=== PATIENT | female | born 1975 | race Hispanic/Latino ===

== ENCOUNTER 2016-08-13 23:48 | Emergency (ER) | payer OTHER ==
[~2016-08-13] VITALS: Ht 162.6 cm; Wt 72.6 kg
[~2016-08-13 23:48] MED LIST: ALBUTEROL2.5 MG/3 M INH/SOL; CIPRO 250MG250 MG PO; CIPRO 500MG TA500 MG PO; FLEXERIL10 MG PO; HYDROCODONE/ACE1 TA1 PO; HYDROXYZINE HCL50 M1 PO; LABETALOL HCL100 M1 PO; MASON NATURAL325 MG PO; MEDROL DOSEPAK1 PAC PO; MEDROL4 MG PO; NORCO 325 MG-51 TAB PO; PANTOPRAZOLE SO20 M1 PO; PROAIR HFA8.5 GM INH; PROTONIX20 M1 PO; VITAFOL-ONE CA1 EACH PO
--- NOTE | 2016-08-14 00:07 | ED CARDIAC/CP/PALPITATIONS ---
History of Present Illness General Chief Complaint: Chest Pain Stated Complaint: CHEST PAIN Source: patient, old records Exam Limitations: no limitations Vital Signs & Intake/Output Vital Signs & Intake/Output Vital Signs Date Time Temp Pulse Resp B/P Pulse O2 O2 Flow FiO2 Ox Delivery Rate 08/14 0118 96.8 100 18 164/88 97 Room Air 08/14 0012 157/91 08/13 2358 98.1 118 20 98 Room Air ED Intake and Output 08/14 0000 08/13 1200 Intake Total Output Total Balance Patient 160 lb Weight Allergies Coded Allergies: NO KNOWN ALLERGIES (03/25/16) Reconcile Medications Albuterol Sulfate (Proair Hfa) 90 MCG HFA.AER.AD 2 PUF INH PRN ASTHMA ( Reported) Albuterol Sulfate 2.5 MG/3 ML (0.083 %) VIAL.NEB 1 Vial INH/ZAHRA PRN ASTHMA ( Reported) Diclofenac Potassium 50 MG TABLET 1 TAB PO BID PRN PAIN Hydroxyzine HCl 50 MG TABLET 1 TAB PO Q6PRN PRN anxiety Labetalol HCl 100 MG TABLET 1 TAB PO BID PIH Pantoprazole Sodium 20 MG TABLET.DR 1 TAB PO DAILY GI (Reported) Pnv#26/Iron Poly/FA/Dha (Vitafol-One Capsule) 1 EACH CAPSULE 1 CAP PO DAILY SUPPLEMENT (Reported) Triage Note: TRIAGE: PATIENT TO ER FROM HOME REPORTING CP X 2 HOURS, TOOK MOTRIN W/O RELIEF. PAIN INCREASED W/ PALPATION TO L CHEST AND INCREASED W/ DEEP BREATHING. REPORTS PAIN STABBING 10/10. DENIES SOB/ N/V/D. Triage Nurses Notes Reviewed? yes : No Patient currently breastfeeds: No HPI: Patient was sitting watching TV at approximately 10 PM when she had gradual onset of heaviness and pressure in the area of her left breast. The pain continued to escalate to its current pain of 10 out of 10. There is no radiation. Patient took Motrin without relief. Pain increases with inspiration and movement. Patient denies shortness of breath. There is no known trauma. Patient took a hot shower but that did not help the pain. Patient denies any coughing. There is no orthopnea. Past History Travel History Traveled to [place] past 21 day No Medical History Any Pertinent Medical History? 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 No Review of Systems Review of Systems Constitutional: Reports: no symptoms. EENTM: Reports: no symptoms. Respiratory: Reports: no symptoms. Cardiovascular: Reports: see HPI, chest pain. GI: Reports: no symptoms. Genitourinary: Reports: no symptoms. Musculoskeletal: Reports: no symptoms. Skin: Reports: no symptoms. Neurological/Psychological: Reports: no symptoms. Hematologic/Endocrine: Reports: no symptoms. Immunologic/Allergic: Reports: no symptoms. All Other Systems: Reviewed and Negative Physical Exam Physical Exam General Appearance: well developed/nourished, alert, awake, anxious, moderate distress Head: atraumatic, normal appearance Eyes: Bilateral: PERRL, EOMI. Ears, Nose, Throat: normal pharynx, normal ENT inspection, hearing grossly normal Neck: normal inspection, supple, full range of motion, JVD Respiratory: normal breath sounds, no respiratory distress, lungs clear, TENDER TO PALP Cardiovascular: regular rate/rhythm, normal peripheral pulses Gastrointestinal: normal bowel sounds, soft, non-tender, no organomegaly Back: normal inspection, normal range of motion Extremities: normal inspection, normal capillary refill, normal range of motion, no edema Neurologic/Psych: no motor/sensory deficits, awake, alert, oriented x 3, normal gait, normal mood/affect Skin: intact, normal color, warm/dry Core Measures ACS in differential dx? No Severe Sepsis Present: No Septic Shock Present: No Progress Differential Diagnosis: AMI, aortic dissection, costochondritis, musculoskeletal pain, myocarditis, pericarditis, pulmonary embolism Plan of Care: Orders Procedure Date/time Status HUMAN BETA HCG SCREEN 08/14 0010 Complete D-DIMER 08/14 0006 Complete TROPONIN LEVEL 08/14 1 Complete COMPREHENSIVE METABOLIC PANEL 08/14 1 Complete CBC WITHOUT DIFFERENTIAL 08/14 1 Complete EKG 08/13 2350 Active Current Medications Sig/Gilbert Start time Last Medication Dose Stop Time Status Admin Ketorolac 60 MG ONCE ONE 08/14 114 UNVr Tromethamine 08/15 115 (Toradol) Laboratory Tests 08/14/16 0010: Total Beta HCG Cancelled 08/14/16 001: Anion Gap 8, Estimated GFR > 60, BUN/Creatinine Ratio 22.5, Glucose 100 H, Calcium 9.1, Total Bilirubin 0.5, AST 35, ALT 47, Alkaline Phosphatase 92, Troponin I < 0.01, Total Protein 7.4, Albumin 3.9, Globulin 3.5, Albumin/ Globulin Ratio 1.1, Total Beta HCG NEGATIVE, D-Dimer 201, CBC w Diff NO MAN DIFF REQ, RBC 4.25, MCV 73.8 L, MCH 24.5 L, RDW 17.0 H, MPV 9.7, Gran % 65.3, Lymphocytes % 22.8, Monocytes % 7.2, Eosinophils % 4.1, Basophils % 0.6, Absolute Granulocytes 6.6 H, Absolute Lymphocytes 2.3, Absolute Monocytes 0.7 H, Absolute Eosinophils 0.4, Absolute Basophils 0.1, PUBS MCHC 33.2 Initial ED EKG: NSR, no ST T wave changes Prior EKG: unchanged Comments: Pain is decreased after the Flexeril. Patient states that now she only has pain with deep inspiration. There is still mild shortness of breath. Departure Departure Disposition: HOME OR SELF CARE Condition: Stable Clinical Impression Primary Impression: Chest pain, unspecified Referrals: DULCE GILLETTE,ADAMARIS Kaur (PCP/Family) Additional Instructions: RETURN IF SYMPTOMS WORSEN OR FOR ANY CONCERNS Departure Forms: Customer Survey General Discharge Information Prescriptions: Current Visit Scripts Diclofenac Potassium 1 TAB PO BID PRN PAIN #20 TAB Critical Care Note Critical Care Note Critical Care Time: non-applicable
[2016-08-14 00:25] LABS: ABSOLUTE BASOPHIL COUNT 0.1 /CUMM (0.0-0.2); ABSOLUTE EOSINOPHIL COUNT 0.4 /CUMM (0.0-0.7); ABSOLUTE MONOCYTE COUNT 0.7 /CUMM (0.10-0.60); MEAN CORPUSCULAR HGB 24.5 PG (27.0-31.0)
[2016-08-14 00:28] LABS: ABSOLUTE GRANULOCYTE CT 6.6 /CUMM (1.4-6.5); ABSOLUTE LYMPH COUNT 2.3 /CUMM (1.2-3.4); BASOPHIL % 0.6 % (0.0-2.0); EOSINOPHIL % 4.1 % (0-5); GRANULOCYTE % 65.3 % (42.2-75.2); HEMATOCRIT 31.3 % (37-47); MEAN CORPUSCULAR HGB CONC 33.2 G/DL (33.0-37.0); MEAN CORPUSCULAR VOLUME 73.8 FL (81.0-99.0); MEAN PLATELET VOLUME 9.7 FL (7.4-10.4); PLATELET COUNT 215 /CUMM (130-400); RED BLOOD CELL CT 4.25 /CUMM (4.20-5.40); WHITE BLOOD CELL COUNT 10.2 /CUMM (4.8-10.8)
[2016-08-14] MEDS ORDERED: DICLOFENAC POTA50 M1 PO (01:17)
[2016-08-14 05:58] VITALS: BP 166/89
== END 2016-08-14 06:39 ==
LOC: ERH 23:48
PROVIDERS: Emergency Medicine
DX: R07.89 Other chest pain (principal)
CPT/HCPCS: 93005; 93010; 96372; J1885

== ENCOUNTER 2017-06-24 18:38 | Emergency (ER) | payer OTHER ==
[~2017-06-24] VITALS: Ht 162.6 cm; Wt 74.8 kg
[~2017-06-24 18:38] MED LIST changes: +DICLOFENAC POTA50 M1 PO
[2017-06-24 19:08] VITALS: BP 132/88
--- NOTE | 2017-06-24 22:29 | RADIOLOGY REPORT ---
EXAMINATION: XR CERVICAL SPINE CLINICAL INFORMATION: Neck pain. Rule out cervical spine injury, malalignment COMPARISON: Cervical spine MRI 04/30/2011. Cervical spine CT 04/07/2011. TECHNIQUE: AP, lateral, odontoid, and bilateral oblique views of the cervical spine. FINDINGS: The dens is intact. The lateral masses are normally positioned. There is reversal of the normal cervical lordosis. There was straightening of the normal cervical lordosis on the prior CT and MRI exams but the degree of reversal appears worsened/increased. 3 mm anterolisthesis of C3 on C4, new. Normal prevertebral soft tissues. Normal alignment at the cervicothoracic junction. Lung apices clear. No fracture seen. There is multilevel left-sided osseous neuroforaminal narrowing on the oblique views, possibly for technical reasons. There is mild right osseous neuroforaminal narrowing at C4-5. There was no osseous neuroforaminal narrowing on the prior cervical spine MRI 04/30/2011. IMPRESSION: There is reversal of the normal cervical lordosis, which can be seen in the setting of muscle spasm. There is 3 mm anterolisthesis of C3 on C4. If there is clinical concern for ligamentous injury, a cervical spine MRI could be obtained. Multilevel left-sided osseous neuroforaminal narrowing is seen on the oblique view, possibly for technical reasons. Mild right C4-5 osseous neuroforaminal narrowing. This could also be assessed by cervical spine MRI. No fracture seen.
== END 2017-06-24 22:03 | disposition admitted as inpatient to this hospital (09) ==
LOC: ERH 18:38
DX: M54.2 Cervicalgia (principal); R51 Headache
CPT/HCPCS: 72050; 99281

== ENCOUNTER 2017-08-19 10:00 | Emergency (ER) | payer OTHER ==
[~2017-08-19] VITALS: Ht 162.6 cm; Wt 74.8 kg
--- NOTE | 2017-08-19 10:22 | ED GI/GU/ABDOMINAL COMPLAINT ---
See Addendum History of Present Illness General Chief Complaint: General Adult Stated Complaint: N/V,FREEMAN/NECK PAIN,BACK PAIN Source: patient Exam Limitations: no limitations Vital Signs & Intake/Output Vital Signs & Intake/Output Vital Signs Date Time Temp Pulse Resp B/P B/P Pulse O2 O2 Flow FiO2 Mean Ox Delivery Rate 08/19 1413 98.1 84 18 168/88 100 Room Air 08/19 1256 97.9 87 18 162/88 98 Room Air 08/19 1212 Room Air 08/19 1010 98.1 88 18 146/92 98 Room Air Allergies Coded Allergies: NO KNOWN ALLERGIES (03/25/16) Reconcile Medications Albuterol Sulfate (Proair Hfa) 90 MCG HFA.AER.AD 2 PUF INH PRN ASTHMA ( Reported) Albuterol Sulfate 2.5 MG/3 ML (0.083 %) VIAL.NEB 1 Vial INH/ZAHRA PRN ASTHMA ( Reported) Diclofenac Potassium 50 MG TABLET 1 TAB PO BID PRN PAIN Dicyclomine HCl 10 MG CAPSULE 1 CAP PO TID ABDOMINAL PAIN Hydroxyzine Hydrochloride (Atarax) 50 MG TABLET 1 TAB PO Q6PRN PRN anxiety Ketorolac Tromethamine 10 MG TABLET 1 TAB PO TID PRN HEADACHE Labetalol HCl 100 MG TABLET 1 TAB PO BID PIH Ondansetron HCl (Zofran) 4 MG TABLET 1 TAB PO Q6-8P PRN NAUSEA Pantoprazole Sodium 20 MG TABLET.DR 1 TAB PO DAILY GI (Reported) Pnv#26/Iron Poly/FA/Dha (Vitafol-One Capsule) 1 EACH CAPSULE 1 CAP PO DAILY SUPPLEMENT (Reported) Triage Note: 41 YO FEMALE TO TRIAGE C/O 4 DAYS OF LOWER ABD PAIN. STATES TODAY SHE STARTED WITH DIZZINESS AND FELT LIKE "MY L EAR WAS GOING TO POP" DENIES DAIRRHEA. DENIES URIANRY S/S. STATES SHE IS UNABLE TO EAT OR DRINK. Triage Nurses Notes Reviewed? yes ? N Is pt currently ? No Onset: Gradual Duration: constant Timing: recent history Severity Numbers: 10 Location: generalized abdomen Radiation: no radiation HPI: Patient is a 41-year-old female with past medical history of viral meningitis, asthma chronic back pain who presents emergency room stating that approximately 4 days ago patient actually struck her left side of her head to a wall or since patient has been complaining of left-sided headaches and neck pain patient also has developed a four-day history of generalized abdominal pain with multiple episodes of nausea and vomiting. Patient has remote history of tubal ligation Patient cannot tolerating by mouth for the past 3 days Denies any fever chills blurred vision cough chest pain dysuria hematuria vaginal bleeding or discharge. (Derek Uribe) Past History Travel History Traveled to [place] past 21 day No Medical History Any Pertinent Medical History? 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 No (Derek Uribe) Review of Systems Review of Systems Constitutional: Reports: see HPI. Denies: chills, fever. EENTM: Reports: ear pain. Respiratory: Reports: no symptoms. Cardiovascular: Reports: no symptoms. GI: Reports: see HPI, abdominal pain. Genitourinary: Reports: no symptoms. Musculoskeletal: Reports: no symptoms, neck pain. Skin: Reports: no symptoms. Neurological/Psychological: Reports: see HPI, headache. Hematologic/Endocrine: Reports: no symptoms. Immunologic/Allergic: Reports: no symptoms. All Other Systems: Reviewed and Negative (Derek Uribe) Physical Exam Physical Exam General Appearance: anxious, moderate distress Head: atraumatic Eyes: Bilateral: normal appearance, PERRL, EOMI. 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 No Sepsis Present: No Sepsis Focused Exam Completed? No (Nancy PEDERSEN,Derek) Progress Differential Diagnosis: AAA, AMI, appendicitis, biliary colic, bowel obstruction , colon cancer, cholecystitis, diverticulitis, ectopic , endometritis, esophageal varices, gastritis, hepatitis, hernia, hemorrhoids, ischemic bowel, inflamm bowel dis, intrauterine , kidney stone, Denae-Radha tear, ovarian cyst, ovarian torsion, pancreatitis, PID/cervicitis, peptic ulcer, PUD/ GERD, perforated viscous, SBO, threatened AB, UTI/pyelo Plan of Care: Orders Procedure Date/time Status LACTIC ACID 08/19 1356 Active URINALYSIS 08/19 1056 Active LIPASE 08/19 1056 Complete LACTIC ACID 08/19 1056 Complete HUMAN BETA HCG SCREEN 08/19 1056 Complete COMPREHENSIVE METABOLIC PANEL 08/19 1056 Complete CBC WITHOUT DIFFERENTIAL 08/19 1056 Complete AMYLASE 08/19 1056 Complete Laboratory Tests 08/19/17 1117: Anion Gap 13, Estimated GFR > 60, BUN/Creatinine Ratio 18.3, Glucose 94, Lactic Acid 0.9, Calcium 9.5, Total Bilirubin 0.8, AST 27, ALT 36, Alkaline Phosphatase 77, Total Protein 7.9, Albumin 4.4, Globulin 3.5, Albumin/Globulin Ratio 1.3, Amylase 62, Lipase 66, Total Beta HCG NEGATIVE, CBC w Diff NO MAN DIFF REQ, RBC 5.04, MCV 77.6 L, MCH 26.1 L, MCHC 33.6, RDW 14.8 H, MPV 9.9, Gran % 80.1 H, Lymphocytes % 11.8 L, Monocytes % 6.0, Eosinophils % 1.7, Basophils % 0.4, Absolute Granulocytes 6.5, Absolute Lymphocytes 1.0 L, Absolute Monocytes 0.5, Absolute Eosinophils 0.1, Absolute Basophils 0 Patient on initial presentation was in moderate distress cranial nerves were essentially intact for concerns of head trauma CT scan of head and neck will be ordered along with CT of abdomen due to severe abdominal pain on arrival. BLOOD WORK currently pending. Blood work CT scan was all unremarkable showing no acute process patient initially received morphine and Toradol was administered discussed results with patient gave copies of images to patient no fractures noted no ICH noted patient will be by mouth challenged. Patient was able tolerate by mouth patient also had significant improvement of headaches and neck pain. No concern of meningitis at this time negative Brudzinski negative Kernig's no meningeal signs Discussed all results with patient patient was given CT scan copies for follow- up Diagnostic Imaging: Viewed by Me: CT Scan. Radiology Impression: no acute abnormality, no fracture Initial ED EKG: none Comments: PATIENT: EM PALACIOS PRESENT AGE: 41 PATIENT ACCOUNT NO: [id number] : 74 LOCATION: [facility] ORDERING PHYSICIAN: Derek PEDERSEN SERVICE DATE: 08/19/17 EXAM TYPE: CAT - CT ABD & PELVIS W IV CONTRAST EXAMINATION: CT ABDOMEN AND PELVIS WITH CONTRAST CLINICAL INFORMATION: Abdominal pain COMPARISON: 08/02/2015 TECHNIQUE: Multidetector volumetric imaging was performed of the abdomen and pelvis following IV administration of 95 mL of Optiray 320 intravenous contrast. Sagittal and coronal reformatted images were obtained on the technologist's workstation. DLP: 565.83 mGy-cm FINDINGS: LUNG BASES: The visualized lung bases are unremarkable. LIVER, GALLBLADDER, AND BILIARY TREE: The liver is normal in size, shape, and attenuation. No focal hepatic lesion or biliary ductal dilatation is present. The gallbladder is unremarkable with no evidence of radiopaque gallstones, gallbladder wall thickening, or obvious pericholecystic inflammatory changes. PANCREAS: Unremarkable. SPLEEN: Unremarkable. ADRENAL GLANDS: Unremarkable. KIDNEYS AND URETERS: The kidneys are normal in size, shape, and attenuation. No hydronephrosis, hydroureter, or calculi seen. No perinephric stranding. Stable 1.6 cm right renal cyst. Tiny cortical hypodensity on the left is too small to characterize but statistically most likely represents the same. BLADDER: Unremarkable. GASTROINTESTINAL TRACT: The small and large bowel are unremarkable. The appendix is unremarkable. ABDOMINAL WALL: No significant hernia is appreciated. LYMPH NODES: Normal. VASCULAR: Unremarkable. PELVIC VISCERA: Unremarkable. OSSEOUS STRUCTURES: Unremarkable. IMPRESSION: No evidence of acute abdominal or pelvic abnormality. DICTATED BY: Domonique Geronimo MD DATE/TIME DICTATED:08/19/171228 ICE SKATER:DEREK DATE/TIME TRANSCRIBED:08/19/171228 PATIENT: EM PALACIOS PRESENT AGE: 41 PATIENT ACCOUNT NO: [id number] : 74 LOCATION: [facility] ORDERING PHYSICIAN: Derek PEDERSEN SERVICE DATE: 08/19/17 EXAM TYPE: CAT - CT CERV SPINE WO IV CONTRAST; CT HEAD WO IV CONTRAST EXAMINATION: NONCONTRAST HEAD CT NONCONTRAST CERVICAL SPINE CT INDICATION INFORMATION: Head and neck trauma COMPARISON: 08/02/2015 TECHNIQUE: Separate noncontrast CT examinations of the head and cervical spine were performed. Coronal and sagittal images were created for each examination at the technologist workstation. DLP: 909 mGy-cm FINDINGS: Head: There is no evidence of acute intracranial hemorrhage or territorial infarction. No abnormal mass effect or midline shift is seen. Cobos to white matter differentiation is well preserved. No extra-axial fluid collections are identified. No hydrocephalus. No significant volume loss. There is no abnormal attenuation within the brain parenchyma. The osseous structures and soft tissues are normal. Mild opacification of the ethmoid air cells. The mastoid air cells and visualized portions of the paranasal sinuses are otherwise well aerated. Cervical spine: Reversal of the normal cervical lordosis. There is otherwise anatomic alignment of the vertebral bodies and posterior elements. The atlantoaxial and atlantooccipital articulations are intact. Vertebral body heights are maintained. There is mild multilevel intervertebral disc space narrowing with endplate osteophyte formation and facet arthropathy. No evidence of acute fracture. No prevertebral soft tissue swelling. Visualized portions of the lung apices are unremarkable. The thyroid gland is unremarkable. IMPRESSION: 1. No acute intracranial findings. 2. No acute fracture or malalignment of the cervical spine. Mild degenerative changes. DICTATED BY: Robby Remy MD DATE/TIME DICTATED:08/19/171238 ICE SKATER:DEREK DATE/TIME TRANSCRIBED:08/19/171238 CONFIDENTIAL, DO NOT COPY WITHOUT APPROPRIATE AUTHORIZATION. (Nancy PEDERSEN,Derek) Departure Departure Disposition: HOME OR SELF CARE Condition: Stable Clinical Impression Primary Impression: Concussion Secondary Impressions: Abdominal pain, Neck strain Referrals: Carla GILLETTE,Evelyne Kaur (PCP/Family) Ab Caldera MD Additional Instructions: As discussed begin a 24-hour clear liquid and bland diet to rest her bowels. 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 Caldera for further evaluation treatment of your abdominal pain. If symptoms worsen return to emergency room Departure Forms: Customer Survey General Discharge Information Prescriptions: Current Visit Scripts Ketorolac Tromethamine 1 TAB PO TID PRN HEADACHE #15 TAB Ondansetron HCl (Zofran) 1 TAB PO Q6-8P PRN NAUSEA #10 TAB Dicyclomine HCl 1 CAP PO TID #9 CAP (Derek Uribe) PA/BONE CHAR KILN TENDER Co-Sign Statement Statement: ED Attending supervision documentation- [] I saw and evaluated the patient. I have also reviewed all the pertinent lab results and diagnostic results. I agree with the findings and the plan of care as documented in the PA's/BONE CHAR KILN TENDER's documentation. [X] I have reviewed the ED Record and agree with the PA's/BONE CHAR KILN TENDER's documentation. [] Additions or exceptions (if any) to the PAs/BONE CHAR KILN TENDER's note and plan are summarized below: [] (Mckay GILLETTE,Tutu Warren)
[2017-08-19 11:25] LABS: ABSOLUTE BASOPHIL COUNT 0 /CUMM (0.0-0.2); ABSOLUTE EOSINOPHIL COUNT 0.1 /CUMM (0.0-0.7); ABSOLUTE GRANULOCYTE CT 6.5 /CUMM (1.4-6.5); ABSOLUTE MONOCYTE COUNT 0.5 /CUMM (0.10-0.60); BASOPHIL % 0.4 % (0.0-2.0); EOSINOPHIL % 1.7 % (0-5); GRANULOCYTE % 80.1 % (42.2-75.2); HEMATOCRIT 39.1 % (37-47); MEAN CORPUSCULAR HGB 26.1 PG (27.0-31.0); MEAN CORPUSCULAR HGB CONC 33.6 G/DL (33.0-37.0); MEAN CORPUSCULAR VOLUME 77.6 FL (81.0-99.0); MEAN PLATELET VOLUME 9.9 FL (7.4-10.4); PLATELET COUNT 242 /CUMM (130-400); RBC DISTRIBUTION WIDTH 14.8 % (11.5-14.5); RED BLOOD CELL CT 5.04 /CUMM (4.20-5.40); WHITE BLOOD CELL COUNT 8.1 /CUMM (4.8-10.8)
--- NOTE | 2017-08-19 12:45 | CT SCAN REPORT ---
EXAMINATION: CT ABDOMEN AND PELVIS WITH CONTRAST CLINICAL INFORMATION: Abdominal pain COMPARISON: 08/02/2015 TECHNIQUE: Multidetector volumetric imaging was performed of the abdomen and pelvis following IV administration of 95 mL of Optiray 320 intravenous contrast. Sagittal and coronal reformatted images were obtained on the technologist's workstation. DLP: 565.83 mGy-cm FINDINGS: LUNG BASES: The visualized lung bases are unremarkable. LIVER, GALLBLADDER, AND BILIARY TREE: The liver is normal in size, shape, and attenuation. No focal hepatic lesion or biliary ductal dilatation is present. The gallbladder is unremarkable with no evidence of radiopaque gallstones, gallbladder wall thickening, or obvious pericholecystic inflammatory changes. PANCREAS: Unremarkable. SPLEEN: Unremarkable. ADRENAL GLANDS: Unremarkable. KIDNEYS AND URETERS: The kidneys are normal in size, shape, and attenuation. No hydronephrosis, hydroureter, or calculi seen. No perinephric stranding. Stable 1.6 cm right renal cyst. Tiny cortical hypodensity on the left is too small to characterize but statistically most likely represents the same. BLADDER: Unremarkable. GASTROINTESTINAL TRACT: The small and large bowel are unremarkable. The appendix is unremarkable. ABDOMINAL WALL: No significant hernia is appreciated. LYMPH NODES: Normal. VASCULAR: Unremarkable. PELVIC VISCERA: Unremarkable. OSSEOUS STRUCTURES: Unremarkable. IMPRESSION: No evidence of acute abdominal or pelvic abnormality.
--- NOTE | 2017-08-19 12:48 | CT SCAN REPORT ---
EXAMINATION: NONCONTRAST HEAD CT NONCONTRAST CERVICAL SPINE CT INDICATION INFORMATION: Head and neck trauma COMPARISON: 08/02/2015 TECHNIQUE: Separate noncontrast CT examinations of the head and cervical spine were performed. Coronal and sagittal images were created for each examination at the technologist workstation. DLP: 909 mGy-cm FINDINGS: Head: There is no evidence of acute intracranial hemorrhage or territorial infarction. No abnormal mass effect or midline shift is seen. Cobos to white matter differentiation is well preserved. No extra-axial fluid collections are identified. No hydrocephalus. No significant volume loss. There is no abnormal attenuation within the brain parenchyma. The osseous structures and soft tissues are normal. Mild opacification of the ethmoid air cells. The mastoid air cells and visualized portions of the paranasal sinuses are otherwise well aerated. Cervical spine: Reversal of the normal cervical lordosis. There is otherwise anatomic alignment of the vertebral bodies and posterior elements. The atlantoaxial and atlantooccipital articulations are intact. Vertebral body heights are maintained. There is mild multilevel intervertebral disc space narrowing with endplate osteophyte formation and facet arthropathy. No evidence of acute fracture. No prevertebral soft tissue swelling. Visualized portions of the lung apices are unremarkable. The thyroid gland is unremarkable. IMPRESSION: 1. No acute intracranial findings. 2. No acute fracture or malalignment of the cervical spine. Mild degenerative changes.
[2017-08-19] MEDS ORDERED: ZOFRAN4 M2 PO (13:36)
[2017-08-19] MEDS ORDERED: KETOROLAC TROME10 M1 PO (13:36)
[2017-08-19] MEDS ORDERED: DICYCLOMINE HCL10 M1 PO (13:38)
[2017-08-19 14:13] VITALS: BP 168/88
== END 2017-08-19 14:50 ==
LOC: ERH 10:00
PROVIDERS: Physician Assistant
DX: S06.0X9A Concussion with loss of consciousness of unspecified duration, initial encounter (principal); S16.1XXA Strain of muscle, fascia and tendon at neck level, initial encounter; R10.84 Generalized abdominal pain; X58.XXXA Exposure to other specified factors, initial encounter; Y92.9 Unspecified place or not applicable; Y93.9 Activity, unspecified
CPT/HCPCS: 74177; 96374; 96375; J1885; J2405

== ENCOUNTER 2017-10-15 11:54 | Emergency (ER) | payer OTHER ==
[~2017-10-15 11:54] MED LIST changes: +DICYCLOMINE HCL10 M1 PO; +KETOROLAC TROME10 M1 PO; +ZOFRAN4 M2 PO
--- NOTE | 2017-10-15 12:51 | ED PSYCHIATRIC COMPLAINT ---
History of Present Illness General Chief Complaint: Psychiatric Related Complaint Stated Complaint: BIBA FOR PSYCH Source: patient Exam Limitations: no limitations Vital Signs & Intake/Output Vital Signs & Intake/Output Vital Signs Date Time Temp Pulse Resp B/P B/P Pulse O2 O2 Flow FiO2 Mean Ox Delivery Rate 10/15 1233 98.5 96 20 183/97 99 Room Air 10/15 1213 Room Air Allergies Coded Allergies: NO KNOWN ALLERGIES (03/25/16) Reconcile Medications Cyclobenzaprine HCl 10 MG TABLET 1 TAB PO TID PRN MUSCLE (Reported) Ketorolac Tromethamine 10 MG TABLET 1 TAB PO TID PRN HEADACHE Tramadol HCl 50 MG TABLET 1 TAB PO DAILY PAIN (Reported) Triage Note: NEVILLE ON PEER FOR SI STATEMENTS VIA TEXT TO HER PSYCHIATRY INSTRUCTOR Triage Nurses Notes Reviewed? yes : No Patient currently breastfeeds: No HPI: Patient presents for evaluation of possible suicide ideation. Patient states that she has been feeling a bit overwhelmed recently partly due to some issues with her job. She text added a poultry scalder in order to engage in prayer but the poultry scalder apparently called 911 concerned about her mental status. Patient currently denies SI or HI but states she is being treated for depression and anxiety. In fact she has an appointment with one of her counselors today at 1 PM. She denies alcohol use but does smoke marijuana from time to time. Past History Travel History Traveled to [place] past 21 day No Medical History Any Pertinent Medical History? 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 No Review of Systems Review of Systems Constitutional: Reports: no symptoms. EENTM: Reports: no symptoms. Respiratory: Reports: no symptoms. Cardiovascular: Reports: no symptoms. GI: Reports: no symptoms. Genitourinary: Reports: no symptoms. Musculoskeletal: Reports: no symptoms. Skin: Reports: no symptoms. Neurological/Psychological: Reports: see HPI. Hematologic/Endocrine: Reports: no symptoms. Immunologic/Allergic: Reports: no symptoms. All Other Systems: Reviewed and Negative Physical Exam Physical Exam General Appearance: SEE BELOW Neurological/Psychiatric: SEE BELOW Comments: General: Alert, calm, cooperative Head: Normocephalic, atraumatic Eyes: Normal inspection, no nystagmus, EOMI Ears: Normal inspection Nose: Normal inspection Throat: Moist mucosa Neck: Supple, no goiter Heart: Regular rate and rhythm, no murmurs rubs or gallops Lungs: Clear to auscultation bilaterally with good air entry Abdomen: Soft nontender nondistended, normal bowel sounds Chest: Nontender Extremities: Normal range of motion grossly, no tremors present, no cyanosis clubbing or edema of the upper extremities Neurologic: cranial nerves II through XII grossly intact, speech clear, gait normal Psychiatric: No apparent delusions or hallucinations, no pressured speech or thought blocking SAD PERSONS Done? DEFERRED TO CRISIS Progress Differential Diagnosis: BIPOLAR DISORDER, DEPRESSION, ANXIETY, PERSONALITY DISORDER, GRIEVING Plan of Care: Orders Procedure Date/time Status Regular Diet 10/15 D Active Continuous Observation Monitor 10/15 1251 Active CBC WITHOUT DIFFERENTIAL 10/15 1251 Active BASIC METABOLIC PANEL 10/15 1251 Active ED CRISIS PSYCH CONSULT 10/15 1251 Active URINE DRUG SCREEN FOR ER ONLY 10/15 1242 Complete Laboratory Tests 10/15/17 1242: Urine Opiates Screen < 100, Methadone Screen < 40, Barbiturate Screen < 60, Ur Phencyclidine Scrn < 6.00, Amphetamines Screen < 100, U Benzodiazepines Scrn < 85, Urine Cocaine Screen < 50, Urine Cannabis Screen > 80.00 H Comments: 10/15/2017 3:37:00 PM patient has been evaluated by the crisis counselor and felt to be stable for outpatient management. Departure Departure Disposition: HOME OR SELF CARE Condition: Stable Clinical Impression Primary Impression: Stress Referrals: Carla GILLETTE,Evelyne Kaur (PCP/Family) Additional Instructions: Follow-up with your counselor tomorrow. Notify your primary care physician of this emergency department visit and treatment plan. Return if any concerns or sudden worsening. Departure Forms: Customer Survey General Discharge Information
[2017-10-15] MEDS ORDERED: TRAMADOL HCL50 M1 PO (14:31)
[2017-10-15] MEDS ORDERED: CYCLOBENZAPRINE10 M1 PO (14:31)
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
[2017-10-15 15:40] VITALS: BP 124/78
== END 2017-10-15 15:41 ==
LOC: ERH 11:54
DX: F43.9 Reaction to severe stress, unspecified (principal)
CPT/HCPCS: 80307; G0463

== ENCOUNTER 2017-11-26 18:07 | Emergency (ER) | payer OTHER ==
[~2017-11-26] VITALS: Ht 162.6 cm; Wt 68.0 kg
[~2017-11-26 18:07] MED LIST changes: +CYCLOBENZAPRINE10 M1 PO; +TRAMADOL HCL50 M1 PO
--- NOTE | 2017-11-26 20:12 | RADIOLOGY REPORT ---
EXAMINATIONS: LEFT FOOT 3 VIEWS AND TIB/FIB 2 VIEWS CLINICAL INFORMATION: Pain. Injury. COMPARISON: None. TECHNIQUE: AP, lateral, oblique views of the left foot were obtained in addition to AP and lateral views of the left tib-fib. FINDINGS: There are no fractures or dislocations. There is no significant soft tissue swelling. No ankle joint effusion is identified. There is a tiny plantar surface calcaneal spur. IMPRESSION: No evidence for acute injury. Tiny plantar surface calcaneal spur.
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
--- NOTE | 2017-11-26 20:13 | RADIOLOGY REPORT ---
EXAMINATION: SHOULDER 3 VIEWS, LEFT CLINICAL INFORMATION: Left shoulder pain. COMPARISON: None. TECHNIQUE: AP views of the left shoulder were obtained in internal and external rotation. In addition, a Y view was obtained. FINDINGS: There are no fractures or dislocations. The humeral head is seated within a well-formed glenoid. The AC joint is intact. IMPRESSION: Unremarkable left shoulder radiographs.
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
[2017-11-26 21:30] VITALS: BP 158/86
[2017-11-26] MEDS ORDERED: NAPROSYN500 M1 PO (21:40)
[2017-11-26] MEDS ORDERED: LIDODERM1 EACH TOP (21:40)
[2017-11-26] MEDS ORDERED: CYCLOBENZAPRINE10 M1 PO (21:40)
== END 2017-11-26 22:00 ==
LOC: ERH 18:07
DX: R51 Headache (principal); M79.605 Pain in left leg; M25.512 Pain in left shoulder; M54.5 Low back pain; V89.2XXA Person injured in unspecified motor-vehicle accident, traffic, initial encounter
CPT/HCPCS: 71100-LT; 72100; 73030-LT; 73562-LT; 73590-LT; 73630-LT; 81025; 96372; J1885

== ENCOUNTER 2018-02-10 12:28 | Emergency (ER) | payer OTHER ==
[~2018-02-10] VITALS: Ht 162.6 cm; Wt 68.0 kg
[~2018-02-10 12:28] MED LIST changes: +LIDODERM1 EACH TOP; +NAPROSYN500 M1 PO; +XANAX0.5 M1 PO
[2018-02-10 13:25] LABS: ABSOLUTE BASOPHIL COUNT 0.1 /CUMM (0.0-0.2); ABSOLUTE EOSINOPHIL COUNT 0.1 /CUMM (0.0-0.7); ABSOLUTE GRANULOCYTE CT 7.3 /CUMM (1.4-6.5); ABSOLUTE LYMPH COUNT 1.2 /CUMM (1.2-3.4); ABSOLUTE MONOCYTE COUNT 0.6 /CUMM (0.10-0.60); BASOPHIL % 0.6 % (0.0-2.0); EOSINOPHIL % 0.8 % (0-5); GRANULOCYTE % 79.5 % (42.2-75.2); HEMATOCRIT 41.4 % (37-47); MEAN CORPUSCULAR HGB 27.3 PG (27.0-31.0); MEAN CORPUSCULAR HGB CONC 33.5 G/DL (33.0-37.0); MEAN CORPUSCULAR VOLUME 81.5 FL (81.0-99.0); MEAN PLATELET VOLUME 10.2 FL (7.4-10.4); PLATELET COUNT 229 /CUMM (130-400); RED BLOOD CELL CT 5.08 /CUMM (4.20-5.40); WHITE BLOOD CELL COUNT 9.1 /CUMM (4.8-10.8)
--- NOTE | 2018-02-10 14:28 | ED GENERAL ADULT ---
History of Present Illness General Chief Complaint: General Adult Stated Complaint: RIGHT SIDED FLANK PAIN, PELVIC PAIN, FREEMAN Source: patient Exam Limitations: no limitations Vital Signs & Intake/Output Vital Signs & Intake/Output Vital Signs Date Time Temp Pulse Resp B/P B/P Pulse O2 O2 Flow FiO2 Mean Ox Delivery Rate 02/10 1504 98.3 100 20 140/80 98 Room Air 02/10 1237 98.4 106 18 145/91 97 Room Air Allergies Coded Allergies: NO KNOWN ALLERGIES (03/25/16) Reconcile Medications Alprazolam (Xanax) 0.5 MG TABLET 1 TAB PO DAILY NEEDED ANXIETY (Reported) Cyclobenzaprine HCl 10 MG TABLET 1 TAB PO TID PRN MUSCLE (Reported) Cyclobenzaprine HCl 10 MG TABLET 1 TAB PO BIDP PRN pain Ketorolac Tromethamine 10 MG TABLET 1 TAB PO TID PRN HEADACHE Lidocaine (Lidoderm) 5 % ADH..PATCH 1 PAT TOP DAILY PRN pain may wear up to 12 hours Naproxen (Naprosyn) 500 MG TABLET 1 TAB PO BID PRN pain Tramadol HCl 50 MG TABLET 1 TAB PO DAILY PAIN (Reported) Triage Note: RECEIVED 42 YO FEMALE C/O RIGHT FLANK/RUQ PAIN X ONE WEEK. PAIN CONSTANT WITH PERIODS OF EXACURBATION. + NEAU[place], NO VOMITING. PT SEEN PMD LAST WEEK, NO DIAGNOSTIC TESTS DONE. PRESCRIBED PAIN MEDS. PT ALSO REPORTS SEVERE HEADACHE X ONE HOUR. PT REPORTS NOT FEELING WELL. Triage Nurses Notes Reviewed? yes Onset: Gradual Duration: day(s): Timing: constant : No Patient currently breastfeeds: No HPI: 42-year-old female with a history of migraines, meningitis, asthma, disc herniations presenting with right flank pain 2-3 days. Pain is worse with movement. Patient denies any strenuous activity or trauma. 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 She saw her PMD for evaluation and was diagnosed with MSK strain, was given NSAIDs, which she has been using without relief. Today she also developed a dull frontal headache, feels similar to her prior migraines. Has also tried the NSAIDs given her by her PMD without relief of her headache. Endorses mild nausea, no vomiting. Denies fevers, neck pain, visual changes, head trauma. (Swetha Pérez) Past History Travel History Traveled to [place] past 21 day No Medical History Any Pertinent Medical History? see below for history Neurological: meningitis (viral meningitis in 2000), migraine EENT: NONE Cardiovascular: NONE Respiratory: asthma Gastrointestinal: NONE Hepatic: NONE Renal: KIDNEY INFECTION Musculoskeletal: disk herniation (CERVICAL), SLIPPED DISC Psychiatric: NONE Endocrine: NONE Blood Disorders: NONE Cancer(s): NONE OPERATIONS ARCHITECT/Reproductive: TUBAL LIGATION History of MRSA: No History of VRE: No History of CDIFF: No Surgical History Surgical History: laparascopic removal of tubal cyst Psychosocial History Who do you live with Family What is your primary language Belarusian Tobacco Use: Current Daily Use Daily Tobacco Use Amount/Type: => 5 Cigarettes daily Family History Family History, If Any: SISTER FHx: kidney disease grand mother FHx: kidney disease Relation not specified for: FHx: ovarian cancer FHx: skin cancer Hx Contributory? No (Swetha Pérez) Review of Systems Review of Systems Constitutional: Reports: no symptoms. EENTM: Reports: no symptoms. Respiratory: Reports: no symptoms. Cardiovascular: Reports: no symptoms. GI: Reports: no symptoms. Genitourinary: Reports: see HPI. Musculoskeletal: Reports: no symptoms. Skin: Reports: no symptoms. Neurological/Psychological: Reports: see HPI. Hematologic/Endocrine: Reports: no symptoms. Immunologic/Allergic: Reports: no symptoms. All Other Systems: Reviewed and Negative (Swetha Pérez) Physical Exam Physical Exam General Appearance: well developed/nourished, alert, awake, mild distress Comments: Gen.: Well-nourished, well-developed, mild distress, anxious Head: Normocephalic, atraumatic. Eyes: Normal inspection bilaterally Ears: Normal inspection bilaterally Nose: Normal inspection Neck: Normal inspection Lungs: clear to auscultation bilaterally, normnal breath sounds Heart: regular rate and rhythm Abdomen: soft and non-tender, tenderness to palpation over the right lower lumbar/flank muscles Back: No midline tenderness to palpation, no CVA tenderness Extremities: Normal inspection Neurologic: alert and oriented x3, steady gait, cranial nerves II through XII intact, sensation intact, motor strength 5 out of 5, reflexes 2+, cerebellar function intact Skin: warm and dry Psychiatric: Normal mood and affect, no apparent delusions or hallucinations, behavior appropriate Core Measures ACS in differential dx? No CVA/TIA Diagnosis: No Sepsis Present: No Sepsis Focused Exam Completed? No (Oli PEDERSEN,Swetha) Progress Differential Diagnoses I considered the following diagnoses in my evaluation of the patient: [MSK strain versus UTI versus pyelonephritis versus renal stone versus hydronephrosis. Migraine versus tension headache, low concern for meningitis versus brain mass versus ICH versus pseudotumor cerebri] Plan of Care: Orders Procedure Date/time Status URINE 02/10 1239 Complete URINALYSIS 02/10 1239 Complete LIPASE 02/10 1239 Complete LACTIC ACID 02/10 1239 Complete COMPREHENSIVE METABOLIC PANEL 02/10 123 Complete CBC WITHOUT DIFFERENTIAL 02/10 123 Complete Laboratory Tests 02/10/18 1539: Lactic Acid Cancelled 02/10/18 1318: Urinalysis LIGHT H, Urine Color YEL, Urine Clarity HAZY H, Urine pH 6.0, Ur Specific [place] 1.015, Urine Protein NEG, Urine Ketones NEG, Urine Nitrite NEG, Urine Bilirubin NEG, Urine Urobilinogen 0.2, Ur Leukocyte Esterase NEG, Ur Microscopic SEDIMENT EXAMINED, Urine RBC 3-5, Urine WBC 1-3 H, Ur Epithelial Cells MOD H, Urine Bacteria MOD H, Hyaline Casts RARE H, Urine Mucus MOD H, Urine Hemoglobin SMALL H, Urine Glucose NEG, Urine Test NEGATIVE 02/10/18 1301: Anion Gap 8, Estimated GFR > 60, BUN/Creatinine Ratio 23.3, Glucose 89, Lactic Acid 0.9, Calcium 9.3, Total Bilirubin 0.5, AST 20, ALT 24, Alkaline Phosphatase 85, Total Protein 7.6, Albumin 4.2, Globulin 3.4, Albumin/Globulin Ratio 1.2, Lipase 45, CBC w Diff NO MAN DIFF REQ, RBC 5.08, MCV 81.5, MCH 27.3, MCHC 33.5, RDW 15.0 H, MPV 10.2, Gran % 79.5 H, Lymphocytes % 12.8 L, Monocytes % 6.3, Eosinophils % 0.8, Basophils % 0.6, Absolute Granulocytes 7.3 H, Absolute Lymphocytes 1.2, Absolute Monocytes 0.6, Absolute Eosinophils 0.1, Absolute Basophils 0.1 Labs unremarkable Patient reports complete resolution of her headache after IV fluids, Toradol, and Reglan She has had moderate improvement in her right flank pain after Toradol and Lidoderm patch Patient requesting to sign out AGAINST MEDICAL ADVICE while awaiting renal ultrasound, states that there is an emergency with her daughter at school and she needs to pick her up. Although patient's flank pain is likely secondary to MSK etiology, she was counseled that she should undergo the ultrasound to rule out any other emergent pathology.. At this time she still requests to leave AGAINST MEDICAL ADVICE discussed the risks of leaving AGAINST MEDICAL ADVICE, and the patient expresses understanding. States that she will return to the emergency department later today for evaluation. Initial ED EKG: none (Swetha Pérez) Departure Departure Disposition: LEFT AGAINST MEDICAL ADVICE Condition: Stable Clinical Impression Primary Impression: Headache Secondary Impressions: Right flank pain Referrals: Carla GILLETTE,Evelyne Kaur (PCP/Family) Additional Instructions: Use ibuprofen as needed for pain. Follow-up with your primary care provider for reevaluation. Return to the emergency department for any new or worsening symptoms. At this time you understand that your workup has not been completed and that you are leaving AGAINST MEDICAL ADVICE. At this time we cannot rule out a life-threatening condition going on in her abdomen. You have stated that you expressed understanding of the risks to leaving AGAINST MEDICAL ADVICE, and still wished to leave AGAINST MEDICAL ADVICE at this time. Departure Forms: Customer Survey General Discharge Information (Swetha Pérez) PA/SINGLE END SEWER Co-Sign Statement Statement: ED Attending supervision documentation- [] I saw and evaluated the patient. I have also reviewed all the pertinent lab results and diagnostic results. I agree with the findings and the plan of care as documented in the PA's/SINGLE END SEWER's documentation. [X] I have reviewed the ED Record and agree with the PA's/SINGLE END SEWER's documentation. [] Additions or exceptions (if any) to the PAs/SINGLE END SEWER's note and plan are summarized below: [] (Vasquez Tabares DO) Critical Care Note Critical Care Note Critical Care Time: non-applicable (Swetha Pérez)
[2018-02-10 15:04] VITALS: BP 140/80
== END 2018-02-10 15:09 | disposition left against medical advice (07) ==
LOC: ERH 12:28
PROVIDERS: Physician Assistant
DX: R51 Headache (principal); R10.9 Unspecified abdominal pain; R11.0 Nausea; J45.909 Unspecified asthma, uncomplicated; F17.210 Nicotine dependence, cigarettes, uncomplicated
CPT/HCPCS: 81001; 81025; 96374; 96375; J1885; J2405; J2765